=== PATIENT | male | born 1960 | race Caucasian/White ===

== ENCOUNTER 2022-09-10 10:51 | Day surgery (SDC) | payer OTHER ==
[~2022-09-10] VITALS: Ht 175.3 cm; Wt 70.1 kg
[~2022-09-10 10:51] MED LIST: ALBU90OI INH; ALLEGRA ALLERG180 MG PO; FLONASE ALLERG9.9 M2
[2022-09-10] MEDS ORDERED: MONT10T (11:40)
--- NOTE | 2022-09-10 12:46 | NUR ---
09/10/22 1245 Lois Ghotra 30MLS OF EPI 1MG/ML USED TO SOAK PLEDGETTS USED DURING CASE. 5ML LIDICAINE 2% WITH EPI 1:100,000 MIXED 1:1 WITH 5MLS NACL TO CREATE A LOCAL SOLUTION OF LIDOCAINE 1% WITH EPI 1:200,000.
[2022-09-10 14:11] VITALS: BP 134/95
--- NOTE | 2022-09-10 15:07 | NUR ---
09/10/22 1507 Chris George IV REMOVED INTACT. SITE WNL.
== END 2022-09-10 14:50 | disposition home or self-care (01) ==
LOC: ORSCSDS 10:51
PROVIDERS: Otolaryngology
PROC: 09DV4ZZ Extraction of Left Ethmoid Sinus, Percutaneous Endoscopic Approach (ICD-10-PCS; principal; 2022-09-10 12:05)
PROC: 09DU4ZZ Extraction of Right Ethmoid Sinus, Percutaneous Endoscopic Approach (ICD-10-PCS; principal; 2022-09-10 12:05)
DX: J32.8 Other chronic sinusitis (principal); J33.9 Nasal polyp, unspecified; Z79.899 Other long term (current) drug therapy
CPT/HCPCS: C2625; J0171; J2250; J2704; J3010; J7120

== ENCOUNTER 2023-03-06 06:10 | Day surgery (SDC) | payer OTHER ==
[2023-03-06] VITALS (11 sets, daily range): BP systolic 125–144; BP diastolic 86–97
[~2023-03-06] VITALS: Ht 175.3 cm; Wt 71.2 kg
[~2023-03-06 06:10] MED LIST changes: +Acerola C500 MG PO; +CALCIUM; +COQ-10100 MG PO; +FISH OIL; +Flonase 0.05% N16 GM; +MONT10T PO; +SILD25T PO; +TURMERIC500 M2 PO
--- NOTE | 2023-03-06 07:10 | NUR ---
ABRASION NOTED TO ABDOMEN POST CLIP PREP. DR GAMBOA AT BEDSIDE AND EXAMINED ABDOMEN POST-CLIP PREP.
--- NOTE | 2023-03-06 11:16 | NUR ---
DISCHARGE NOTE PT A&OX4, BREATHING RA, TOLERATING PO FLUIDS AND FOOD. PT TREATED FOR PAIN PER MD ORDERS. AT BEDSIDE. Patient up to Ambulate independently. Gait steady. Discharge instructions reviewed with patient. Patient verbalizes understanding. Copy given to patient to take home. Dressing to procedure site clean, dry, intact with no visible drainage, swelling, erythema or bruising noted. Discharged via wheelchair to private car for ride home.
== END 2023-03-06 23:41 | disposition home or self-care (01) ==
LOC: ORSCMMR 06:10 → ORD 07:30 → ORSCMMR 23:41
PROVIDERS: Surgery
PROC: 8E0W4CZ Robotic Assisted Procedure of Trunk Region, Percutaneous Endoscopic Approach (ICD-10-PCS; principal; 2023-03-06 07:30)
PROC: 07BH4ZX Excision of Right Inguinal Lymphatic, Percutaneous Endoscopic Approach, Diagnostic (ICD-10-PCS; principal; 2023-03-06 07:30)
PROC: 0YU74JZ Supplement Right Femoral Region with Synthetic Substitute, Percutaneous Endoscopic Approach (ICD-10-PCS; principal; 2023-03-06 07:30)
PROC: 0YUA4JZ Supplement Bilateral Inguinal Region with Synthetic Substitute, Percutaneous Endoscopic Approach (ICD-10-PCS; principal; 2023-03-06 07:30)
PROC: 07BC4ZX Excision of Pelvis Lymphatic, Percutaneous Endoscopic Approach, Diagnostic (ICD-10-PCS; principal; 2023-03-06 07:30)
DX: K40.30 Unilateral inguinal hernia, with obstruction, without gangrene, not specified as recurrent (principal); K40.90 Unilateral inguinal hernia, without obstruction or gangrene, not specified as recurrent; K41.30 Unilateral femoral hernia, with obstruction, without gangrene, not specified as recurrent; D36.0 Benign neoplasm of lymph nodes; K66.0 Peritoneal adhesions (postprocedural) (postinfection); J45.909 Unspecified asthma, uncomplicated; E78.5 Hyperlipidemia, unspecified; Z79.899 Other long term (current) drug therapy
CPT/HCPCS: 88305; A9270; C1781; J0690; J1100; J1885; J2250; J2405; J2704; J3010; J7120